=== PATIENT | female | born 1970 | race Caucasian/White ===

== ENCOUNTER 2017-01-05 09:19 | Inpatient (IN) ==
[2017-01-05] MEDS ORDERED: ASPIRIN PO STA (09:46)
[2017-01-05 10:01] LABS: MANUAL DIFF NEEDED? NO
[2017-01-05 10:03] LABS: BASO% 0.7 % (0.0-0.8); EOS# 0.44 X1000 (0.0-0.7); EOS% 7.8 % (0.0-10.0); HEMATOCRIT 42.1 % (37.0-47.0); HEMOGLOBIN 15.1 g/dL (12.0-16.0); LYMPH# 1.36 X1000 (1.2-3.4); LYMPH% 24.2 % (20.5-51.1); MCH 33.3 PG (27-31); MCHC 35.9 g/dL (33-37); MCV 92.7 FL (81-99); MONO# 0.55 X1000 (0.11-0.59); MONO% 9.8 % (1.7-9.3); MPV 10.4 FL (7.4-10.4); NEUT% 57.5 % (42.2-75.2); PLT 267 X1000 (130-400); RBC 4.54 XMIL (4.2-5.4)
--- NOTE | 2017-01-05 10:08 | Diag Imaging Result Doc PS360 ---
CHEST-1 VIEW - 01/05/2017 INDICATION: recurring chest pain TECHNIQUE: COMPARISON: 04/23/2013 FINDINGS: The lungs are normally expanded and clear. Heart size and mediastinal contours are normal. No pneumothorax or pleural effusion. IMPRESSION: Negative exam. Electronically signed by Chris Washburn 01/05/2017 10:06 AM
[2017-01-05 10:15] LABS: INR 0.99; PROTIME 10.4 Seconds (9.2-11.7); PTT 26.5 Seconds (22.0-36.0)
[2017-01-05 10:29] LABS: AGAP 14; ALBUMIN 4.6 g/dL (3.5-5.0); ALKALINE PHOSPHATASE 51 U/L (32-104); BUN 13 mg/dL (8-22); CALCIUM 9.4 mg/dL (8.8-10.2); CHLORIDE 103 mmol/L (98-107); CK PROFILE 65 U/L (24-173); COSMO 282; GOT 21 U/L (10-30); GPT 14 U/L (10-36); MAGNESIUM 2.1 mg/dL (1.5-2.7); POTASSIUM 3.6 mmol/L (3.5-5.1); SODIUM 141 mmol/L (136-145); TCO2 24 mmol/L (25-35); TOTAL BILIRUBIN 0.29 mg/dL (0.20-1.00)
[2017-01-05] MEDS ORDERED: NITROGLYCERIN TOP ONE (11:18)
[2017-01-05] MEDS ORDERED: NICODERM PATCH TD SCH (14:35)
[2017-01-05] MEDS ORDERED: ZOFRAN IV PRN (14:35)
[2017-01-05] MEDS: MORPHINE IV PRN ×2 (14:43→17:01)
[2017-01-05] MEDS ORDERED: TORADOL IV ONE (15:56)
--- NOTE | 2017-01-05 17:07 | Diag Imaging Result Doc PS360 ---
EXAM: CT NECK W/CONTRAST HISTORY: severe left jaw pain, dental caries TECHNIQUE: CT of the neck with intravenous contrast with low-dose protocol COMMENT: There are ill-defined alveolar opacities in the right upper and left lower lobe superior segment. No previous CT examinations of the chest are available for comparison. There is what appears to be a 16 mm submandibular node just deep to the body of the mandible on the left. There is no associated stranding in the fat or other findings of inflammatory disease, nor is there any evidence of abnormal fluid collections. There is what appears to be a prominent lingual tonsil on the right. The salivary glands are symmetrical in appearance. Otherwise there is no evidence of significant adenopathy and no acute bony abnormalities are demonstrated. The airway is clear. The epiglottis is not enlarged. The thyroid gland is unremarkable. IMPRESSION: Apparent airspace disease in the lungs as described. Questionable left submandibular adenopathy otherwise no evidence of significant abnormality in the neck. The findings were discussed with Dr. Hernández at 01/05/2017 5:04 PM. Electronically signed by Real Ferreira 01/05/2017 5:05 PM
[2017-01-05] MEDS: LOVENOX SUBQ SCH (17:16)
[2017-01-05] MEDS: NICODERM PATCH TD SCH (17:17)
[2017-01-05] MEDS: NS 1,000 ML IV SCH (17:17)
[2017-01-05] MEDS: ZOSYN 3.375 GM in NS 50 ML IV SCH (18:50)
[2017-01-05] MEDS: DILAUDID IV PRN ×2 (19:52→23:15)
[2017-01-06] MEDS: ZOSYN 3.375 GM in NS 50 ML IV SCH ×6 (00:56→23:29)
[2017-01-06] MEDS: DILAUDID IV PRN ×5 (03:54→19:41)
[2017-01-06] MEDS: NS 1,000 ML IV SCH ×2 (06:21→16:53)
[2017-01-06 06:44] LABS: AGAP 13; BUN 13 mg/dL (8-22); CALCIUM 8.7 mg/dL (8.8-10.2); CHLORIDE 103 mmol/L (98-107); COSMO 281; HDL 48 mg/dL (45-65); LDL 93 mg/dL; MAGNESIUM 2.1 mg/dL (1.5-2.7); POTASSIUM 3.7 mmol/L (3.5-5.1); SODIUM 141 mmol/L (136-145); TCO2 25 mmol/L (25-35); TRIGLYCERIDES 217 mg/dL (35-135); VLDL 43 mg/dL
[2017-01-06] MEDS: TYLENOL PO PRN ×2 (06:45→19:42)
[2017-01-06 07:18] LABS: FREE T4 1.13 ng/dL (0.93-1.70)
[2017-01-06] MEDS ORDERED: SYNTHROID PO SCH (09:00)
[2017-01-06] MEDS: ASPIRIN PO SCH ×2 (12:39→16:57)
[2017-01-06] MEDS: NICODERM PATCH TD SCH (13:04)
[2017-01-06] MEDS ORDERED: LEXISCAN ONE (14:36)
[2017-01-06] MEDS ORDERED: AMINOPHYLLINE ONE (14:57)
[2017-01-06] MEDS: LOVENOX SUBQ SCH ×2 (15:35→16:55)
--- NOTE | 2017-01-06 19:28 | Diag Imaging Result Document ---
PROCEDURE NAME: MYOCARDIAL PERF SCAN, STR/REST - 01/06/2017 INDICATION: The patient is with atypical chest pain, suspect coronary heart disease. DESCRIPTION: The patient came into the nuclear lab and received a rest injection of technetium 99 sestamibi 12.4 mCi. Multiple tomographic views of the cardiac structure were obtained at rest. Subsequently the patient underwent infusion of Lexiscan 0.4 mg. At peak infusion was injected with technetium 99 sestamibi 35.9 mCi. Multiple tomographic views of the cardiac structure were obtained following the completion of the protocol. SUMMARY OF THE ELECTROCARDIOGRAPHIC PORTION OF THE STUDY: Resting ECG showed sinus rhythm, rate 84 beats per minute. Resting blood pressure is 132/74. Resting ECG shows no acute abnormality. During infusion of Lexiscan, the heart rate increased to 139 beats per minute. Blood pressure went up to 140/82. ECG showed no ischemic changes. The patient reported some tingling in the arms and some nausea which resolved with 125 mg of aminophylline. ECG showed no changes during the recovery phase. Blood pressure and heart rate returned back to baseline. CONCLUSIONS: Electrocardiographic response to infusion of Lexiscan is normal. SUMMARY OF THE MYOCARDIAL PERFUSION PORTION OF THE STUDY: Poststress tomographic views of the left ventricle showed a very trivial apical defect. The rest images showed that this defect is fixed. The polar plots revealed the same. There is no convincing evidence of inducible ischemia. There is a tiny fixed apical anterior/inferior defect. This probably represents breast attenuation artifact as noted on the rotating/raw images. Gated SPECT showed normal left ventricular systolic function. Ejection fraction estimated at 77% with normal ventricular volumes and no wall motion abnormality. The lung/heart ratio is normal. The TID is normal. CONCLUSIONS: 1. Unremarkable electrocardiographic response to Lexiscan protocol. 2. Essentially normal poststress myocardial perfusion scan. There is no scintigraphic evidence of pharmacologically induced myocardial ischemia utilizing Lexiscan protocol. Trivial apical anterior/inferior defect, likely represents attenuation artifact. 3. Normal left ventricular systolic function. Ejection fraction is 77% with normal ventricular volumes and no wall motion abnormality. 4. The study would represent low risk for ischemic events. cc: MD Zoey Thorpe PA
[2017-01-06] MEDS: NORCO-7.5 PO PRN (22:51)
[2017-01-07] MEDS: NORCO-7.5 PO PRN ×3 (02:42→10:56)
[2017-01-07] MEDS: ZOSYN 3.375 GM in NS 50 ML IV SCH ×2 (05:43→13:54)
[2017-01-07] MEDS: NS 1,000 ML IV SCH (06:55)
[2017-01-07] MEDS ORDERED: SYNTHROID PO SCH (07:00)
[2017-01-07] MEDS: ASPIRIN PO SCH (09:27)
[2017-01-07] MEDS: NICODERM PATCH TD SCH (09:27)
[2017-01-07 11:56] VITALS: BP 146/87
[2017-01-07] MEDS: TYLENOL PO PRN (12:21)
[2017-01-07] MEDS ORDERED: PERCOCET-10 PO PRN (14:25)
[2017-01-07] MEDS ORDERED: COLACE PO SCH (21:00)
[2017-01-07] MEDS ORDERED: AUGMENTIN PO SCH (21:00)
== END 2017-01-07 15:36 | disposition home or self-care (01) ==
LOC: ED 09:19 → 4N 09:19 → OBSVTOIN 13:45
PROVIDERS: ATTEND Internal Medicine